=== PATIENT | male | born 1960 | race African-American/Black ===

== ENCOUNTER 2022-01-17 22:10 | Emergency (ER) | payer BC, SELFPAY ==
[2022-01-18 00:16] LABS: Urine Blood Negative (Negative); Urine Glucose Negative (Negative); Urine Protein Negative (Negative); Urine Specific Gravity >=1.030 (1.005-1.030); Urine pH 5.5 (5.0-7.0)
--- NOTE | 2022-01-18 00:21 | EDPHYS ---
Physician Documentation [facility] Name: Wagner Valente Age: 61 yrs Sex: Male : 1960 Arrival Date: 01/17/2022 Time: 22:14 Bed 10 Private MD: ED Physician Raymundo Flores HPI: 01/18 00:18 This 61 yrs old Black Male presents to ER via Ambulatory with complaints of Back Pain. kb 00:18 The patient presents with pain that is acute, with no known mechanism of injury. kb 00:19 The symptoms are located in the low back. Onset: The symptoms/episode began/occurred 3 kb day(s) ago. The pain radiates to the lateral aspect of right thigh. Associated signs and symptoms: The patient has no apparent associated signs or symptoms. The problem was sustained from unknown cause. Modifying factors: The patient symptoms are alleviated by nothing, the patient symptoms are aggravated by any movement. Severity of symptoms: At their worst the symptoms were mild, in the emergency department the symptoms are unchanged. The patient has not experienced similar symptoms in the past. The patient has not recently seen a physician. Pt reports low back pain that radiates into right thigh for a few days. Denies urinary symptoms, fever. Historical: - Allergies: 01/17 22:42 No Known Allergies; as6 - Home Meds: 22:42 amlodipine oral [Active]; Metoprolol Tartrate Oral [Active]; Hydrochlorothiazide Oral as6 [Active]; - PMHx: 22:42 Hypertensive disorder; Hypercholesterolemia; as6 - PSHx: 22:42 None; as6 - Immunization history:: Client reports receiving the 2nd dose of the Covid vaccine, [employer]. - Social history:: Smoking status: Patient denies any tobacco usage or history of. ROS: 01/18 00:19 Constitutional: Negative for fever, chills, and weight loss. kb Back: Positive for pain at rest, pain with movement. All other systems are negative. Exam: 00:18 Constitutional: This is a well developed, well nourished patient who is awake, alert, kb and in no acute distress. Head/Face: Normocephalic, atraumatic. ENT: Moist Mucous membranes Cardiovascular: Regular rate and rhythm with a normal S1 and S2. No gallops, murmurs, or rubs. No pulse deficits. Respiratory: Respirations even and unlabored. No increased work of breathing. Talking in full sentences Abdomen/GI: Soft, non-tender. No distention Skin: Warm, dry with normal turgor. Normal color. MS/ Extremity: Pulses equal, no cyanosis. Neurovascular intact. Full, normal range of motion. Neuro: Awake and alert, GCS 15, oriented to person, place, time, and situation. Moves all extremities. Normal gait. Psych: Awake, alert, with orientation to person, place and time. Behavior, mood, and affect are within normal limits. 00:18 Back: pain, that is moderate, of the low back area, ROM is normal, normal spinal alignment noted, CVA tenderness, is absent, vertebral tenderness, is not appreciated. Vital Signs: 01/17 22:39 BP 134 / 85; Pulse 71; Resp 18 S; Temp 98.4(O); Pulse Ox 97% on R/A; Weight 108.86 kg as6 (R); Height 5 ft. 8 in. (172.72 cm) (R); Pain 7/10; 22:39 Body Mass Index 36.49 (108.86 kg, 172.72 cm) as6 MDM: 23:42 Patient medically screened. kb 01/18 00:18 Data reviewed: vital signs, nurses notes. Data interpreted: Pulse oximetry: on room air kb is 97 %. Interpretation: normal. Counseling: I had a detailed discussion with the patient and/or guardian regarding: the historical points, exam findings, and any diagnostic results supporting the discharge/admit diagnosis, lab results, the need for outpatient follow up, a family practitioner, to return to the emergency department if symptoms worsen or persist or if there are any questions or concerns that arise at home. 01/18 00:16 Order name: Urine Dipstick-Ancillary; Complete Time: 00:18 EDMS 01/17 23:55 Order name: Urine Dipstick-Ancillary (obtain specimen); Complete Time: 00:18 kb Administered Medications: 00:26 Drug: [place] (HYDROcodone-acetaminophen) 10 mg-325 mg 1 tabs Route: PO; as6 00:27 Follow up: Response: No adverse reaction as6 Disposition Summary: 01/18/22 00:20 Discharge Ordered Location: Home kb Condition: Stable kb Diagnosis - Sciatica, right side kb Followup: kb - With: Emergency Department - When: As needed - Reason: Worsening of condition Followup: kb - With: Private Physician - When: 2 - 3 days - Reason: Recheck today's complaints, Continuance of care, Re-evaluation by your physician Discharge Instructions: - Discharge Summary Sheet kb - Sciatica, [id number] kb Forms: - Medication Reconciliation Form kb - Thank You Letter kb - Antibiotic Education kb - Prescription Opioid Use kb Prescriptions: - Cyclobenzaprine 10 mg Oral Tablet - take 1 tablet by ORAL route every 8 hours As needed; 15 tablet; Refills: 0, kb Product Selection Permitted - Diclofenac Sodium 75 mg Oral tablet,delayed release (DR/EC) - take 1 tablet by ORAL route 2 times per day As needed; 30 tablet; Refills: 0, kb Product Selection Permitted Addendum: 01/21/2022 16:08 Co-signature as Attending Physician, Raymundo Flores MD. r n Signatures: Chiquis Reaves, SELF STORAGE MANAGER-C SELF STORAGE MANAGER-Ckb Raymundo Flores MD MD rn Slawson, Ashby, RN RN as6
--- NOTE | 2022-01-18 00:21 | ER ---
Nurse's Notes [facility] Name: Wagner Valente Age: 61 yrs Sex: Male : 1960 Arrival Date: 01/17/2022 Time: 22:14 Bed 10 Private MD: Diagnosis: Sciatica, right side Presentation: 01/17 22:39 Chief complaint: Patient states: "I have a back ache. It's been going on for a couple as6 of days". Coronavirus screen: At this time, the client does not indicate any symptoms associated with coronavirus-19. Ebola Screen: No symptoms or risks identified at this time. Initial Sepsis Screen: Does the patient meet any 2 criteria? No. Patient's initial sepsis screen is negative. Does the patient have a suspected source of infection? No. Patient's initial sepsis screen is negative. Risk Assessment: Do you want to hurt yourself or someone else? Patient reports no desire to harm self or others. Onset of symptoms was January 15, 2022. 22:39 Method Of Arrival: Ambulatory as6 22:39 Acuity: BASIL 4 as6 Triage Assessment: 01/18 00:21 General: Appears in no apparent distress. Behavior is calm, cooperative. Pain: as6 Complains of pain in right leg and lateral aspect of right thigh and low back area. : Reports urinary frequency. Historical: - Allergies: 01/17 22:42 No Known Allergies; as6 - Home Meds: 22:42 amlodipine oral [Active]; Metoprolol Tartrate Oral [Active]; Hydrochlorothiazide Oral as6 [Active]; - PMHx: 22:42 Hypertensive disorder; Hypercholesterolemia; as6 - PSHx: 22:42 None; as6 - Immunization history:: Client reports receiving the 2nd dose of the Covid vaccine, [employer]. - Social history:: Smoking status: Patient denies any tobacco usage or history of. Screenin/03 00:21 Abuse screen: Denies threats or abuse. Denies injuries from another. Nutritional tw5 screening: No deficits noted. Tuberculosis screening: No symptoms or risk factors identified. Fall Risk None identified. Vital Signs: 01/17 22:39 BP 134 / 85; Pulse 71; Resp 18 S; Temp 98.4(O); Pulse Ox 97% on R/A; Weight 108.86 kg as6 (R); Height 5 ft. 8 in. (172.72 cm) (R); Pain 7/10; 22:39 Body Mass Index 36.49 (108.86 kg, 172.72 cm) as6 ED Course: 22:14 Patient arrived in ED. bp1 22:42 Triage completed. as6 22:43 Arm band placed on. as6 23:42 Chiquis Reaves FNP-C [facility] kb 23:42 Raymundo Flores MD is Attending Physician. kb 01/18 00:18 Jennifer Pnea is Primary Nurse. tw5 00:22 Bed in low position. Call light in reach. as6 00:26 No provider procedures requiring assistance completed. Patient did not have IV access as6 during this emergency room visit. Administered Medications: 00:26 Drug: [place] (HYDROcodone-acetaminophen) 10 mg-325 mg 1 tabs Route: PO; as6 00:27 Follow up: Response: No adverse reaction as6 Medication: 00:22 VIS not applicable for this client. as6 Outcome: 00:20 Discharge ordered by . kb 00:26 Discharged to home ambulatory. as6 00:26 Condition: stable 00:26 Discharge instructions given to patient, Instructed on discharge instructions, follow up and referral plans. medication usage, Demonstrated understanding of instructions, follow-up care, medications, Prescriptions given X 2. 00:27 Patient left the ED. as6 Signatures: Chiquis Reaves FNP-C FNP-Ckb [place], Brittany bp1 Jennifer Pena tw5 Dalton Mendoza, RN RN as6
[2022-01-18] MEDS ORDERED: HYDROCODONE/APAP 10/325 TAB ONE (00:36)
[2022-01-18 03:16] VITALS: BP 134/85; TEMP 98.4; O2SAT 97
== END 2022-01-18 00:27 | disposition home or self-care (01) ==
LOC: ER 22:10
DX: M54.31 Sciatica, right side (principal); I10 Essential (primary) hypertension; E78.00 Pure hypercholesterolemia, unspecified
CPT/HCPCS: 81003; 99283

== ENCOUNTER 2024-05-28 09:43 | Emergency (ER) | payer OTHER, SELFPAY ==
--- OUTSIDE RECORDS SUMMARY | 2024-05-28 09:46 | XMS REPORT | Continuity of Care Document ---
Author Name Unknown Address [address] [facility] [address] [place] [address] [facility] Address [address] [facility] [address] [place] [address] Care Team Providers Care Underliner Name Role Phone Rayray Ibarra Attending Clinician Unavailable Payers Payer Name Policy Type Policy Number Effective Date Expirati on Date Source [facility] Individual Exchange Benefit Plan [id number] 2023 00:00:00 2024 00:00:00 [facility] 6 [id number] 2023 00:00:00 [facility] Problems Condition Name Condition Details Condition Category Status Onset Date Resolution Date Last Treatment Date Treating Clinician Comments Source Essential hypertensi on Essential hypertensi on Problem [facility] Mixed hyperlipid emia Hyperlipem ia, mixed Problem [facility] [id number] History of non anemic vitamin B12 deficiency Problem [facility] [id number] Body mass index [BMI] 40.0-44.9, adult Problem [facility] [id number] Morbid (severe) obesity due to excess calories Problem [facility] Allergic rhinitis Allergic rhinitis Problem [facility] [id number] 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 Ordering Clinician Indication Dosage Frequency Signature (SIG) Comments Components Source Cyanocobala min Cyanocobala min 01-20 00:00: 00 No 1000ug [facility] Sildenafil Citrate 100 MG Sildenafil Citrate 100 MG 07-22 00:00: 00 No 1{table t_as_ne eded} QD Sildenafil Citrate 100 MG Pravastatin Sodium 40 MG Pravastatin Sodium 40 MG No 1{table t} QD Pravastati n Sodium 40 MG hydroCHLORO thiazide 25 MG hydroCHLORO thiazide 25 MG No 1{table t_in_th e_morni ng} QD hydroCHLOR Othiazide 25 MG Dorzolamide HCl 2 % Dorzolamide HCl 2 % No 1{drop_ into_af fected_ eye} BID Dorzolamid e HCl 2 % Latanoprost 0.005 % Latanoprost 0.005 % No Latanopros t 0.005 % Azelastine HCl 137 MCG/SPRAY Azelastine HCl 137 MCG/SPRAY No 1{puff_ in_each _nostri l} BID Azelastine HCl 137 MCG/SPRAY Metoprolol Tartrate 75 MG Metoprolol Tartrate 75 MG No 1{table t_with_ food} BID Metoprolol Tartrate 75 MG amLODIPine Besylate 10 MG amLODIPine Besylate 10 MG No 1{table t} QD amLODIPine Besylate 10 MG Immunizations Ordered Immunization Name Filled Immunization Name Date Status Comments Source Boostrix (Tdap) Boostrix (Tdap) Unknown Completed [facility] Boostrix (Tdap) Boostrix (Tdap) Unknown Completed [facility] Boostrix (Tdap) Boostrix (Tdap) Unknown Completed [facility] Vital Signs Vital Name Observation Time Observation Value Comments S ource height 2024-01-21 14:00:00 68.00 [in_i] Com [facility] weight 2024-01-21 14:00:00 266.6 [lb_av] Co [facility] temperature 2024-01-21 14:00:00 97.3 [degF] Com [facility] bmi 2024-01-21 14:00:00 40.53 kg/m2 Comm on [facility] oximetry 2024-01-21 14:00:00 97 % Commo n [facility] blood pressure systolic 2024-01-21 14:00:00 144 mm[Hg] Common [facility] blood pressure diastolic 2024-01-21 14:00:00 80 mm[Hg] [facility] height 2023-07-23 14:50:00 68.00 [in_i] Com [facility] weight 2023-07-23 14:50:00 268.0 [lb_av] Co [facility] temperature 2023-07-23 14:50:00 97.7 [degF] Com [facility] bmi 2023-07-23 14:50:00 40.74 kg/m2 Comm on [facility] oximetry 2023-07-23 14:50:00 97 % Commo n [facility] respiratory rate 2023-07-23 14:50:00 17 /min [facility] blood pressure systolic 2023-07-23 14:50:00 130 mm[Hg] [facility] blood pressure diastolic 2023-07-23 14:50:00 79 mm[Hg] [facility] temperature 2023-06-30 14:30:00 98.1 [degF] Com [facility] bmi 2023-06-30 14:30:00 40.87 kg/m2 Comm on [facility] oximetry 2023-06-30 14:30:00 98 % Commo n [facility] respiratory rate 2023-06-30 14:30:00 16 /min [facility] blood pressure systolic 2023-06-30 14:30:00 136 mm[Hg] [facility] blood pressure diastolic 2023-06-30 14:30:00 84 mm[Hg] [facility] height 2023-06-30 14:30:00 68.00 [in_i] Com [facility] weight 2023-06-30 14:30:00 268.8 [lb_av] Co [facility] height 2022-08-18 14:20:00 68.00 [in_i] Com [facility] weight 2022-08-18 14:20:00 269.0 [lb_av] Co [facility] temperature 2022-08-18 14:20:00 98.2 [degF] Com [facility] bmi 2022-08-18 14:20:00 40.9 kg/m2 Commo n [facility] oximetry 2022-08-18 14:20:00 97 % Commo n [facility] respiratory rate 2022-08-18 14:20:00 17 /min [facility] blood pressure systolic 2022-08-18 14:20:00 139 mm[Hg] [facility] blood pressure diastolic 2022-08-18 14:20:00 82 mm[Hg] [facility] Encounters Start Date/Time End Date/Time Encounter Type Admission Type Attending Clinicians Care Facility Care Department Encounter ID Source 2024-04-26 11:35:00 [facility] [id number] [facility] 2024-03-09 08:34:00 [facility] [id number] [facility] 2024-01-15 14:52:00 [facility] [id number] [facility] 2023-12-11 15:45:00 Outpatient Ibarra, Rayray [facility] [id number] [facility] 2023-11-09 09:51:00 Outpatient Ibarra, Rayray [facility]LML[facility] [id number] [facility] 2023-11-04 12:41:00 Outpatient Ibarra, Rayray STLMLC ST[facility] [id number] [facility] 2023-06-29 15:14:01 Outpatient Ibarra, Rayray STLMLC ST[facility] [id number] [facility] 2023-06-26 10:53:01 Outpatient Ibarra, Rayray STLMLC ST[facility] [id number] [facility] 2023-03-23 10:23:01 Outpatient Ibarra, Rayray STLMLC ST[facility] [id number] [facility] 2023-03-17 14:20:00 Outpatient Ibarra, Rayray STLMLC STL[facility] [id number] [facility] 2022-11-19 09:03:01 Outpatient Ibarra, Rayray STLMLC ST[facility] [id number] [facility] 2022-08-18 13:46:04 Outpatient Ibarra, Rayray STLMLC STL[facility]C [id number] [facility] 2024-03-28 00:00:00 2024-03-28 00:00:00 (TEL) STLMLC ST[facility]C [id number] [facility] 2024-03-07 00:00:00 2024-03-07 00:00:00 (TEL) STLMLC STL[facility]C [id number] [facility] 2024-03-07 00:00:00 2024-03-07 00:00:00 (TEL) STLMLC STLMLC [id number] [facility] 2024-03-02 00:00:00 2024-03-02 00:00:00 (TEL) STLMLC STLMLC [id number] [facility] 2024-01-21 00:00:00 2024-01-21 00:00:00 OFFICE VISIT ESTAB PT LEVEL 4 STLMLC STLMLC [id number] [facility] 2023-12-25 00:00:00 2023-12-25 00:00:00 (TEL) STLMLC STLMLC [id number] [facility] 2023-12-11 00:00:00 2023-12-11 00:00:00 (TEL) STLMLC STLMLC [id number] [facility] 2023-11-18 00:00:00 2023-11-18 00:00:00 (TEL) STLMLC STLMLC [id number] [facility] 2023-07-23 00:00:00 2023-07-23 00:00:00 OFFICE VISIT ESTAB PT LEVEL 4 STLMLC STLMLC [id number] [facility] 2023-06-30 00:00:00 2023-06-30 00:00:00 PREV VISIT EST AGE 40-64 STLMLC STLMLC [id number] [facility] 2023-06-02 00:00:00 2023-06-02 00:00:00 (TEL) STLMLC STLMLC [id number] [facility] 2023-01-26 00:00:00 2023-01-26 00:00:00 (TEL) STLMLC STLMLC [id number] [facility] 2022-08-18 00:00:00 2022-08-18 00:00:00 OFFICE VISIT NEW PT LEVEL 3 STLMLC STLMLC [id number] [facility] Results Test Description Test Time Test Comments Results Result Co mments Source
[2024-05-28 11:27] LABS: Absolute Basophils 0.1 K/uL (0-0.5); Absolute Eosinophils 0.2 K/uL (0-0.5); Absolute Lymphocytes (CBC) 2.4 K/uL (0.7-4.9); Absolute Monocytes 0.5 K/uL (0.1-1.3); Absolute Neutrophil 1.9 K/uL (1.8-8.0); Basophils % 1.2 % (0-1.3); Lymphocytes % 48.4 % (15.3-44.8); MCH 30.1 pg (27.0-35.0); MCHC 34.3 g/dL (32.0-36.0); MPV 7.3 fL (7.6-11.3); Neutrophils % 37.4 % (41.7-73.7); Nucleated Red Blood Cells % 0.1 % (0-0); Platelets 347 thou/uL (152-406); RBC Red Blood Cell Count 4.66 M/uL (4.33-5.43); Red Cell Distribution Width 13.5 % (12.1-15.2)
[2024-05-28 11:47] LABS: Albumin 3.8 g/dL (3.4-5.0); Anion Gap 8.9 mEq/L (5.0-15.0); Bilirubin Total 0.5 mg/dL (0.2-1.0); C-Reactive Protein 6.91 mg/L (<3.00); Globulin 3.8 g/dL (2.3-3.5); Protein, Total 7.6 g/dL (6.4-8.2)
[2024-05-28 11:48] LABS: Potassium 3.9 mEq/L (3.5-5.1)
--- NOTE | 2024-05-28 12:34 | RAD REPORT ---
EXAM: CT Head Brain Wo Cont HISTORY: right temporal pain;Pain COMPARISON: None TECHNIQUE: Multiple contiguous axial images were obtained for a CT of the brain without contrast. Sag ittal and coronal reformats were performed. One or more of the following dose reduction techniques were used: Automated exposure control, adjus tment of the mA and kV according to patient size, and iterative reconstruction. Unless otherwise specified, incidental findings do not require dedicated imaging follow-up. FINDINGS: No evidence of hydrocephalus, intracranial hemorrhage, or extra-axial fluid collection. The brain is normal in morphology. The calvarium is intact. The visualized paranasal sinuses and mastoid air cells are essentially clear . IMPRESSION: No evidence of acute intracranial abnormality.
--- NOTE | 2024-05-28 12:45 | ER ---
Nurse's Notes [facility] Name: Wagner Valente Age: 64 yrs Sex: Male : 1960 Arrival Date: 05/28/2024 Time: 09:43 Bed 19 Private MD: Diagnosis: Other giant cell arteritis Presentation: 05/28 10:07 Chief complaint: Patient states: was having high bp readings last night like 138/75 and iw he is having headaches X 1 week. Coronavirus screen: At this time, the client does not indicate any symptoms associated with coronavirus-19. Ebola Screen: No symptoms or risks identified at this time. Initial Sepsis Screen: Does the patient meet any 2 criteria? No. Patient's initial sepsis screen is negative. Does the patient have a suspected source of infection? No. Patient's initial sepsis screen is negative. Risk Assessment: Do you want to hurt yourself or someone else? Patient reports no desire to harm self or others. Onset of symptoms was May 21, 2024. 10:07 Method Of Arrival: Ambulatory iw 10:07 Acuity: BASIL 3 iw Triage Assessment: 10:13 General: Appears in no apparent distress. Behavior is calm, cooperative. Pain: Denies iw pain. Historical: - Allergies: 10:10 No Known Allergies; iw - Home Meds: 10:08 amlodipine 10 mg oral tablet daily [Active]; pravastatin oral daily [Active]; iw Metoprolol Tartrate Oral 2 times per day [Active]; - PMHx: 10:08 Hypercholesterolemia; Hypertensive disorder; iw - PSHx: 10:08 None; iw - Immunization history:: Adult Immunizations not up to date. - Infectious Disease History:: Denies. - Social history:: Smoking status: Patient/guardian denies using tobacco. Screenin:43 [facility] ED Fall Risk Assessment (Adult) History of falling in the last 3 months, iw including since admission No falls in past 3 months (0 pts) Confusion or Disorientation No (0 pts) Intoxicated or Sedated No (0 pts) Impaired Gait No (0 pts) Mobility Assist Device Used No (0 pt) Altered Elimination No (0 pt) Score/Fall Risk Level 0 - 2 = Low Risk Oriented to surroundings, Maintained a safe environment, Educated pt \T\ family on fall prevention, incl call for assistance when getting out of bed, Hourly rounding (assess needs \T\ fall precautionary measures) done. Abuse screen: Denies threats or abuse. Denies injuries from another. Nutritional screening: No deficits noted. Tuberculosis screening: No symptoms or risk factors identified. Assessment: 10:25 General: Appears comfortable, Behavior is calm, cooperative. Pain: Complains of pain in iw headache Pain does not radiate. Pain currently is 5 out of 10 on a pain scale. Quality of pain is described as pressure. Neuro: Level of Consciousness is awake, alert, obeys commands, Oriented to person, place, time, situation. Neuro: Reports headache. Cardiovascular: Capillary refill < 3 seconds Patient's skin is warm and dry. Respiratory: Airway is patent Respiratory effort is even, unlabored, Respiratory pattern is regular, symmetrical. GI: Abdomen is round non-distended. 11:20 Reassessment: Patient and/or family updated on plan of care and expected duration. Pain ha1 level reassessed. Patient is alert, oriented x 3, equal unlabored respirations, skin warm/dry/pink. 12:20 Reassessment: Patient and/or family updated on plan of care and expected duration. Pain ha1 level reassessed. Patient is alert, oriented x 3, equal unlabored respirations, skin warm/dry/pink. Vital Signs: 10:07 BP 111 / 86; Pulse 51; Resp 18; Temp 97.9; Pulse Ox 97% on R/A; Weight 108.86 kg; iw Height 5 ft. 8 in. ; Pain 0/10; 11:20 BP 107 / 78; Pulse 51; Resp 18 S; Pulse Ox 100% on R/A; iw 12:30 BP 121 / 83; Pulse 50; Resp 18 S; Pulse Ox 99% on R/A; ha1 10:07 Body Mass Index 36.49 (108.86 kg, 172.72 cm) iw 10:07 Pain Scale: Adult iw ED Course: 09:46 Patient arrived in ED. al6 09:47 Nellie Ibarra MD is Attending Physician. sp3 10:08 Triage completed. iw 10:10 Patient has correct armband on for positive identification. Placed in gown. Bed in low iw position. Call light in reach. Side rails up X 1. Adult w/ patient. 10:10 Provided Education on: plan of are . iw 10:13 Arm band placed on. iw 11:00 Missed attempt(s): 22 gauge in right hand. Bleeding controlled, band aid applied, iw catheter tip intact. 11:09 CT Head Brain wo Cont In Process Unspecified. EDMS 11:20 Leonela Amezquita, RN is Primary Nurse. iw 11:20 CBC with Diff Sent. iw 11:20 CMP Sent. iw 11:21 CRP Sent. iw 12:56 No provider procedures requiring assistance completed. Patient did not have IV access ha1 during this emergency room visit. Administered Medications: 12:55 Drug: predniSONE PO 20 mg PO once Route: PO; ha1 12:57 Follow up: Response: No adverse reaction; Medication administered at discharge. ha1 Medication: 11:43 VIS not applicable for this client. iw Outcome: 12:45 Discharge ordered by . sp3 12:56 Discharged to home ambulatory, with family, ha1 12:56 Condition: stable 12:56 Discharge instructions given to patient, family, Instructed on discharge instructions, follow up and referral plans. medication usage, Demonstrated understanding of instructions, follow-up care, medications, Prescriptions given X 1, 12:57 Patient left the ED. ha1 Signatures: Dispatcher [employer] EDLeonela Clarke, RN RN iw Nellie Ibarra MD MD sp3 Miracle Thurston RN RN ha1 Mariana Spencer
--- NOTE | 2024-05-28 12:45 | EDPHYS ---
Physician Documentation [facility] Name: Wagner Valente Age: 64 yrs Sex: Male : 1960 Arrival Date: 05/28/2024 Time: 09:43 Bed 19 Private MD: ED Physician Nellie Ibarra HPI: 05/28 10:29 This 64 yrs old Black Male presents to ER via Ambulatory with complaints of Blood sp3 Pressure Problem. 10:29 64-year-old male with history of hypertension, hyperlipidemia now presents to the ED sp3 with off-and-on headaches for the last week particularly on the right baptist and parietal region. She denies trauma, fever, neck pain or stiffness, sudden onset of headache, worst headache of his life, chest pain, shortness of breath, syncope, near syncope, neurological complaints, or any other signs or symptoms on ROS at this time. Blood pressure has been stable at home with maximal at [address] Rayray Ibarra for his PCP. He denies history of temporal cell arteritis.. Historical: - Allergies: 10:10 No Known Allergies; iw - Home Meds: 10:08 amlodipine 10 mg oral tablet daily [Active]; pravastatin oral daily [Active]; iw Metoprolol Tartrate Oral 2 times per day [Active]; - PMHx: 10:08 Hypercholesterolemia; Hypertensive disorder; iw - PSHx: 10:08 None; iw - Immunization history:: Adult Immunizations not up to date. - Infectious Disease History:: Denies. - Social history:: Smoking status: Patient/guardian denies using tobacco. ROS: 10:31 Constitutional: Negative for fever, chills, and weight loss, Eyes: Negative for injury, sp3 pain, redness, and discharge, ENT: Negative for injury, pain, and discharge, Neck: Negative for injury, pain, and swelling, Cardiovascular: Negative for chest pain, palpitations, and edema, Respiratory: Negative for shortness of breath, cough, wheezing, and pleuritic chest pain, Abdomen/GI: Negative for abdominal pain, nausea, vomiting, diarrhea, and constipation, Back: Negative for injury and pain, MS/Extremity: Negative for injury and deformity, Skin: Negative for injury, rash, and discoloration, Psych: Negative for depression, anxiety, suicide ideation, homicidal ideation, and hallucinations, Allergy/Immunology: Negative for hives, rash, and allergies, Endocrine: Negative for neck swelling, polydipsia, polyuria, polyphagia, and marked weight changes, Hematologic/Lymphatic: Negative for swollen nodes, abnormal bleeding, and unusual bruising, 10:31 All other systems are negative, Exam: 10:31 Constitutional: This is a well developed, well nourished patient who is awake, alert, sp3 and in no acute distress. Head/Face: Normocephalic, atraumatic. Eyes: Pupils equal round and reactive to light, extra-ocular motions intact. Lids and lashes normal. Conjunctiva and sclera are non-icteric and not injected. Cornea within normal limits. Periorbital areas with no swelling, redness, or edema. ENT: Nares patent. No nasal discharge, no septal abnormalities noted. External auditory canals are clear. Oropharynx with no redness, swelling, or masses, exudates, or evidence of obstruction, uvula midline. Mucous membranes moist. Neck: Trachea midline, no thyromegaly or masses palpated, and no cervical lymphadenopathy. Supple, full range of motion without nuchal rigidity, or vertebral point tenderness. No Meningismus. Chest/axilla: Normal chest wall appearance and motion. Nontender with no deformity. No lesions are appreciated. Cardiovascular: Regular rate and rhythm with a normal S1 and S2. No gallops, murmurs, or rubs. Normal PMI, no JVD. No pulse deficits. Respiratory: Lungs have equal breath sounds bilaterally, clear to auscultation and percussion. No rales, rhonchi or wheezes noted. No increased work of breathing, no retractions or nasal flaring. Abdomen/GI: Soft, non-tender, with normal bowel sounds. No distension or tympany. No guarding or rebound. No evidence of tenderness throughout. Back: No spinal tenderness. No costovertebral tenderness. Full range of motion. Skin: Warm, dry with normal turgor. Normal color with no rashes, no lesions, and no evidence of cellulitis. MS/ Extremity: Pulses equal, no cyanosis. Neurovascular intact. Full, normal range of motion. Neuro: Awake and alert, GCS 15, oriented to person, place, time, and situation. Cranial nerves II-XII grossly intact. Motor strength 5/5 in all extremities. Sensory grossly intact. Cerebellar exam normal. Normal gait. Psych: Awake, alert, with orientation to person, place and time. Behavior, mood, and affect are within normal limits. Vital Signs: 10:07 BP 111 / 86; Pulse 51; Resp 18; Temp 97.9; Pulse Ox 97% on R/A; Weight 108.86 kg; iw Height 5 ft. 8 in. ; Pain 0/10; 11:20 BP 107 / 78; Pulse 51; Resp 18 S; Pulse Ox 100% on R/A; iw 12:30 BP 121 / 83; Pulse 50; Resp 18 S; Pulse Ox 99% on R/A; ha1 10:07 Body Mass Index 36.49 (108.86 kg, 172.72 cm) iw 10:07 Pain Scale: Adult iw MDM: 10:09 Medical Screening Exam initiated sp3 10:32 Data reviewed: vital signs, nurses notes, lab test result(s), radiologic studies. ED sp3 course: 64-year-old male with off-and-on headaches. Differential diagnosis includes idiopathic headache, cluster headaches, migraine headache, temporal cell arteritis, or other intracranial process including tumor mass although unlikely. Workup will include CT scan of the head and general labs including CRP. If workup negative we will safely discharge patient home. His vital signs are normal and he has no headache currently. He can follow-up with Dr. Perez and PCP as needed. No pharmacological intervention indicated at this time.. 12:44 ED course: CT scan negative. Labs normal except for CRP being elevated. No ESR sp3 available anymore in our lab. Will go ahead and treat for temporal cell arteritis with outpatient follow-up and biopsy to be determined by PCP.. 05/28 10:22 Order name: CRP; Complete Time: 12:22 sp3 05/28 10:22 Order name: CBC with Diff; Complete Time: 12:22 sp3 05/28 10:22 Order name: CMP; Complete Time: 12:22 sp3 05/28 10:22 Order name: CT Head Brain wo Cont; Complete Time: 12:36 sp3 Administered Medications: 12:55 Drug: predniSONE PO 20 mg PO once Route: PO; ha1 12:57 Follow up: Response: No adverse reaction; Medication administered at discharge. ha1 Disposition Summary: 05/28/24 12:45 Discharge Ordered Notes: Location: Home sp3 Condition: Stable sp3 Diagnosis - Other giant cell arteritis sp3 Followup: sp3 - With: Private Physician - When: Upon discharge from the Emergency Department - Reason: Continuance of care Discharge Instructions: - Discharge Summary Sheet sp3 - Temporal Arteritis sp3 Forms: - Medication Reconciliation Form sp3 - Antibiotic Education sp3 - Prescription Opioid Use sp3 - Patient Portal Instructions sp3 - Leadership Thank You Letter sp3 Prescriptions: - Prednisone 20 mg Oral tablet - take 1 tablet ORAL route once daily for 7 days; 7 tablet; Refills: 0, Product sp3 Selection Permitted Signatures: Dispatcher [employer] Leonela Carey, GÓMEZ RN iw Nellie Ibarra MD MD sp3 Miracle Thurston RN RN ha1
[2024-05-28] MEDS ORDERED: predniSONE 20 MG TAB ONE (12:46)
[2024-05-31 15:18] VITALS: BP 121/83; TEMP 97.9; O2SAT 99
== END 2024-05-28 12:57 | disposition home or self-care (01) ==
LOC: ER 09:43
DX: M31.6 Other giant cell arteritis (principal); I10 Essential (primary) hypertension; E78.00 Pure hypercholesterolemia, unspecified; Z79.899 Other long term (current) drug therapy
CPT/HCPCS: 85025; 36415; 80053; 86140; 70450; 99284; J7512